=== PATIENT | female | born 1960 | race Caucasian/White ===

== ENCOUNTER 2016-08-22 09:29 | Emergency (ER) | payer OTHER ==
[~2016-08-22] VITALS: Ht 160 cm; Wt 70.3 kg
[~2016-08-22 09:29] MED LIST: CLONAZEPAM1 M2 PO; QUETIAPINE FUMA50 M1 PO
--- NOTE | 2016-08-22 09:39 | ED CARDIAC/CP/PALPITATIONS ---
History of Present Illness General Chief Complaint: Chest Pain Stated Complaint: BIBA, CHEST PAIN Source: patient Exam Limitations: no limitations Reconcile Medications Clonazepam 1 MG TABLET 1 TAB PO QPMP PRN ANXIETY (Reported) Pantoprazole Sodium (Protonix) 40 MG TABLET.DR 1 TAB PO DAILY gerd Quetiapine Fumarate 50 MG TABLET 1 TAB PO QPM SLEEP (Reported) Sucralfate (Carafate) 1 GRAM/10 ML ORAL.SUSP 10 ML PO Q6 PRN upper abdominal pain 1 hour before food and bedtime Triage Nurses Notes Reviewed? yes HPI: Patient is a 55 year old female presents complaining of midsternal pain and difficulty swallowing. Difficulty swallowing x 6 months. Over the past 2 weeks burning sensation from epigastric area into her throat intermittent, multiple episodes each day, and feels this sensation when she feels the difficulty swallowing. Symptoms worse in the morning after waking up. Drinks water and sensation gradually improves. Last episode was this morning when she awoke at 0730, was taking longer than normal to improve which prompted her to call 911. Patient had associated nausea, took Pepto-Bismol with no improvement. Patient reports associated dyspnea when she has the burning sensation. Patient saw her primary care doctor last week, had an EKG and a chest x-ray and is scheduled to follow up with him on August 28. Patient denies family history of cardiac disease. (KENTON BAUER) Vital Signs & Intake/Output Vital Signs & Intake/Output Vital Signs Date Time Temp Pulse Resp B/P Pulse O2 O2 Flow FiO2 Ox Delivery Rate 08/22 1120 98.1 59 16 109/59 96 Room Air 08/22 1000 98 Room Air 08/22 0935 97.5 67 20 110/54 95 Room Air Allergies Coded Allergies: NO KNOWN ALLERGIES (08/22/16) (MIL PORTER,CHEYANNE Delgadillo) Past History Travel History Traveled to [place] past 21 day No Medical History Any Pertinent Medical History? see below for history Psychiatric: anxiety, depression Surgical History Surgical History: non-contributory Psychosocial History What is your primary language Barbadian Tobacco Use: Never used ETOH Use: denies use Illicit Drug Use: denies illicit drug use Family History Hx Contributory? No (KENTON BAUER) Review of Systems Review of Systems Constitutional: Denies: chills, fever. EENTM: Reports: no symptoms. Respiratory: Reports: short of breath (NONE CURRENTLY). Denies: cough. Cardiovascular: Reports: chest pain. Denies: peripheral edema, syncope. GI: Reports: abdominal pain (EPIGASTRIC), nausea. Denies: vomiting. Genitourinary: Reports: no symptoms. Musculoskeletal: Reports: no symptoms. Skin: Reports: no symptoms. Neurological/Psychological: Reports: no symptoms. Hematologic/Endocrine: Reports: no symptoms. Immunologic/Allergic: Reports: no symptoms. (KENTON BAUER) Physical Exam Physical Exam General Appearance: well developed/nourished, alert, awake, anxious Head: atraumatic, normal appearance Eyes: Bilateral: normal appearance, PERRL, EOMI. Ears, Nose, Throat: normal pharynx, normal ENT inspection, hearing grossly normal Neck: normal inspection, supple, full range of motion Respiratory: normal breath sounds, chest non-tender, no respiratory distress, lungs clear Cardiovascular: regular rate/rhythm (NO MURMUR) Gastrointestinal: normal bowel sounds, soft, non-tender Back: normal inspection, normal range of motion Extremities: normal inspection, normal capillary refill, normal range of motion, no edema, NO CALF TENDERNESS Neurologic/Psych: no motor/sensory deficits, awake, alert, oriented x 3, normal mood/affect Skin: intact, normal color, warm/dry Lymphatic: no anterior cervical yonathan Core Measures ACS in differential dx? Yes ASA ordered for poss ACS? No-ACS ruled out Severe Sepsis Present: No Septic Shock Present: No (KENTON BAUER) Progress Differential Diagnosis: AMI, aortic dissection, costochondritis, hyperventilation, musculoskeletal pain, pericarditis, pneumonia, pulmonary embolism, PUD/GERD, unstable angina Initial ED EKG: normal sinus rhythm 69 beats per minute left axis deviation, no acute ST/T-wave changes compared to previous EKG Prior EKG: changed (mild change in axis) Rhythm Strip: normal sinus rhythm (KENTON BAUER) Plan of Care: Orders Procedure Date/time Status Telemetry/Superintendent Logging 08/23 955 Active TROPONIN LEVEL 08/22 09 Complete LIPASE 08/22 09 Complete COMPREHENSIVE METABOLIC PANEL 08/22 09 Complete CBC WITHOUT DIFFERENTIAL 08/23 955 Complete EKG 08/22 0930 Active Laboratory Tests 08/22/16 1005: Anion Gap 8, Estimated GFR > 60, BUN/Creatinine Ratio 15.7, Glucose 92, Calcium 9.5, Total Bilirubin 1.2, AST 28, ALT 37, Alkaline Phosphatase 69, Troponin I < 0.01, Total Protein 6.7, Albumin 3.7, Globulin 3.0, Albumin/Globulin Ratio 1.2, Lipase 85, CBC w Diff NO MAN DIFF REQ, RBC 4.79, MCV 87.6, MCH 29.4, RDW 12.9, MPV 8.9, Gran % 53.9, Lymphocytes % 35.5, Monocytes % 8.1, Eosinophils % 1.9, Basophils % 0.6, Absolute Granulocytes 2.5, Absolute Lymphocytes 1.6, Absolute Monocytes 0.4, Absolute Eosinophils 0.1, Absolute Basophils 0, PUBS MCHC 33.6 Patient had chest x-ray palpation within the past 1 week. Repeat chest x-ray deferred. 08/22/2016 10:07:45 AM: Discussed with Dr. Johnson. Results of labs discussed with patient and her son. Patient appears stable to follow up with her primary doctor next week. Symptoms greater than 24 hours with no ischemic EKG changes and negative troponin. (KENTON BAUER) Departure Departure Time of Disposition: 110 Disposition: HOME OR SELF CARE Condition: Stable Clinical Impression Primary Impression: GERD (gastroesophageal reflux disease) Qualifiers: Esophagitis presence: esophagitis presence not specified Qualified Code: K21.9 - Gastro-esophageal reflux disease without esophagitis Secondary Impressions: Atypical chest pain Referrals: ALLI PORTER,NOLBERTO Way (PCP/Family) BEA PORTER,KENOTN Plunkett Additional Instructions: Follow-up with your primary doctor on August 28 as previously scheduled. Continue taking your MiraLAX as directed, take a stool softener such as Colace as directed to aid with your constipation. Return to the emergency department if worsening of symptoms. Departure Forms: Customer Survey General Discharge Information Prescriptions: Current Visit Scripts Sucralfate (Carafate) 10 ML PO Q6 PRN upper abdominal pain #120 ML 1 hour before food and bedtime Pantoprazole Sodium (Protonix) 1 TAB PO DAILY #30 TAB (KENTON BAUER) PA/SPANISH MEDICAL INTERPRETER Co-Sign Statement Statement: ED Attending supervision documentation- [] I saw and evaluated the patient. I have also reviewed all the pertinent lab results and diagnostic results. I agree with the findings and the plan of care as documented in the PA's/SPANISH MEDICAL INTERPRETER's documentation. [x] I have reviewed the ED Record and agree with the PA's/SPANISH MEDICAL INTERPRETER's documentation. [] Additions or exceptions (if any) to the PAs/SPANISH MEDICAL INTERPRETER's note and plan are summarized below: [] (MIL PORTER,CHEYANNE Delgadillo) Critical Care Note Critical Care Note Critical Care Time: non-applicable (ILSA GARCIA,KENTON)
[2016-08-22 10:16] LABS: ABSOLUTE BASOPHIL COUNT 0 /CUMM (0.0-0.2); ABSOLUTE EOSINOPHIL COUNT 0.1 /CUMM (0.0-0.7); ABSOLUTE GRANULOCYTE CT 2.5 /CUMM (1.4-6.5); ABSOLUTE LYMPH COUNT 1.6 /CUMM (1.2-3.4); ABSOLUTE MONOCYTE COUNT 0.4 /CUMM (0.10-0.60); BASOPHIL % 0.6 % (0.0-2.0); EOSINOPHIL % 1.9 % (0-5); GRANULOCYTE % 53.9 % (42.2-75.2); MEAN CORPUSCULAR HGB 29.4 PG (27.0-31.0); MEAN CORPUSCULAR HGB CONC 33.6 G/DL (33.0-37.0); MEAN CORPUSCULAR VOLUME 87.6 FL (81.0-99.0); MEAN PLATELET VOLUME 8.9 FL (7.4-10.4); PLATELET COUNT 244 /CUMM (130-400); RBC DISTRIBUTION WIDTH 12.9 % (11.5-14.5); RED BLOOD CELL CT 4.79 /CUMM (4.20-5.40); WHITE BLOOD CELL COUNT 4.6 /CUMM (4.8-10.8)
[2016-08-22] MEDS ORDERED: PROTONIX40 M3 PO (11:12)
[2016-08-22] MEDS ORDERED: CARAFATE1 GM/10 M1 PO (11:12)
[2016-08-22 11:20] VITALS: BP 109/59
== END 2016-08-22 11:20 ==
LOC: ERH 09:29
PROVIDERS: Physician Assistant
DX: K21.9 Gastro-esophageal reflux disease without esophagitis (principal); R07.89 Other chest pain
CPT/HCPCS: 93005; 93010

== ENCOUNTER 2016-08-25 13:21 | Emergency (ER) | payer OTHER ==
[~2016-08-25] VITALS: Ht 160 cm; Wt 69.4 kg
[~2016-08-25 13:21] MED LIST changes: +CARAFATE1 GM/10 M1 PO; +PROTONIX40 M3 PO
--- NOTE | 2016-08-25 13:48 | ED GI/GU/ABDOMINAL COMPLAINT ---
History of Present Illness General Chief Complaint: Chest Pain Stated Complaint: CHEST PAIN Source: patient Exam Limitations: no limitations Vital Signs & Intake/Output Vital Signs & Intake/Output Vital Signs Date Time Temp Pulse Resp B/P Pulse O2 O2 Flow FiO2 Ox Delivery Rate 08/25 1736 97.2 75 18 115/74 97 Room Air Room Air 08/25 1439 97.8 74 20 108/70 96 Nasal 2.0L Cannula 08/25 1336 98 Room Air Room Air 08/25 1335 98.2 88 20 123/68 98 Room Air Room Air Allergies Coded Allergies: NO KNOWN ALLERGIES (08/22/16) Triage Note: PT WALKED INTO TRIAGE AND LAID DOWN ON FLOOR PER TRIAGE NURSE MARJORIE. PT TO TOUSSAINT A STRETCHER VIA WHEELCHAIR, ABLE TO GET UP AND AMUBLATE TO TOUSSAINT A STRETCHER. PT AND STATING "I WAS JUST DISCHARGED FROM [facility], SUPPOSED TO FOLLOW UP WITH GI, I WANT TO FIND OUT AND SEE GI RIGHT NOW". VITALS STABLE, AFEBRILE. DENIES N/V/D. Triage Nurses Notes Reviewed? yes ? N Is pt currently ? No HPI: This patient is a 55-year-old female with a past medical history including anxiety, and depression who presented to the emergency department today brought in by her for evaluation of multiple complaints. This patient was just discharged from [facility]. Last night the patient began having chest pressure which she was unable to describe or quantify for me. The patient reported that his belly Was Sitting on Her Chest. She Reported the Pain Radiated to Her Back. She Had a Stress Test, EKG, Chest X-Ray, and Blood Work Done at [facility], All of Which Was Unremarkable. They Told Her to Follow up with a Director Index. The Patient Reported That She Was Coming Back from the Hospital She Started to Feel a Pressure in Her Abdomen Which Feels like It Is, "Rising up to My Chest." The Patient Denied Any Pain or Nausea. She Denied Any Vomiting. The Patient Is Denying Any Current Back Pain, Urinary Burning, Urgency, Frequency, Blood in the Urine, Urinary Retention, Diarrhea, or Constipation. The Patient Reported That She Is Feeling Confused and, "Out Of It. She Reported That It Feels like It Is Difficult to Breathe. (GLORY BEAL,LANCE) Reconcile Medications Clonazepam 1 MG TABLET 1 TAB PO QPMP PRN ANXIETY (Reported) Famotidine (Pepcid) 20 MG TABLET 1 TAB PO BID PRN REFLUX Metoclopramide HCl (Reglan) 10 MG TABLET 1 TAB PO 4 TIMES/DAY PRN NAUSEA/ VOMITING 30 minutes before meals and bedtime Pantoprazole Sodium (Protonix) 40 MG TABLET.DR 1 TAB PO DAILY gerd Quetiapine Fumarate 50 MG TABLET 1 TAB PO QPM SLEEP (Reported) Sucralfate (Carafate) 1 GRAM/10 ML ORAL.SUSP 10 ML PO Q6 PRN upper abdominal pain 1 hour before food and bedtime (JASMYN ABDI MD) Past History Travel History Traveled to [place] past 21 day No Medical History Any Pertinent Medical History? see below for history Neurological: NONE EENT: NONE Cardiovascular: NONE Respiratory: NONE Gastrointestinal: ? GERD Hepatic: NONE Renal: NONE Musculoskeletal: NONE Psychiatric: anxiety, depression Endocrine: NONE Blood Disorders: NONE Cancer(s): NONE CHILD DEVELOPMENT PROFESSOR/Reproductive: NONE Surgical History Surgical History: non-contributory Psychosocial History What is your primary language Estonian Tobacco Use: Never used ETOH Use: occasional use Illicit Drug Use: denies illicit drug use Family History Hx Contributory? No (LANCE HOLDER PA-C) Review of Systems Review of Systems Constitutional: Reports: see HPI. EENTM: Reports: no symptoms. Respiratory: Reports: see HPI. Cardiovascular: Reports: see HPI. GI: Reports: see HPI. Genitourinary: Reports: no symptoms. Musculoskeletal: Reports: no symptoms. Skin: Reports: no symptoms. Neurological/Psychological: Reports: no symptoms. All Other Systems: Reviewed and Negative (LANCE HOLDER PA-C) Physical Exam Physical Exam Gastrointestinal: normal bowel sounds, soft, non-tender, no organomegaly, NO REBOUND OR GUARDING. nO PERITONEAL SIGNS. nO MASSES APPRECIATED. Comments: Well-developed well-nourished person in moderate distress HEENT: Normal EENT exam, head normocephalic, moist mucous membranes Pupils equally round and reactive to light. Neck: Supple, no lymphadenopathy Back: Normal inspection with no CVA tenderness Cardiovascular: Regular rate and rhythm with no murmurs, rubs, or gallops. No JVD or carotid bruits Respiratory: Chest nontender. No respiratory distress. Breath sounds clear to auscultation bilaterally with no wheezes, rales, rhonchi Extremity: Normal and equal pulses Neuro: Alert and oriented 3, cranial nerves II through XII grossly intact. Skin: No appreciable rash on exposed skin, skin is warm and dry. Psych: Mood and affect is normal Core Measures ACS in differential dx? No Severe Sepsis Present: No Septic Shock Present: No (GLORY BEAL,LANCE) Progress Differential Diagnosis: AAA, AMI, appendicitis, biliary colic, bowel obstruction , colon cancer, cholecystitis, diverticulitis, ectopic , endometritis, esophageal varices, gastritis, hepatitis, hernia, ischemic bowel, inflamm bowel dis, kidney stone, ovarian cyst, ovarian torsion, pancreatitis, PID/cervicitis, PUD/GERD, perforated viscous, SBO, threatened AB, UTI/pyelo Plan of Care: Orders Procedure Date/time Status D-DIMER 08/25 135 Complete TROPONIN LEVEL 08/25 134 Complete LIPASE 08/25 134 Complete DIRECT BILIRUBIN 08/25 134 Complete COMPREHENSIVE METABOLIC PANEL 08/25 134 Complete CBC WITHOUT DIFFERENTIAL 08/25 134 Complete AMYLASE 08/25 134 Complete EKG 08/25 134 Active Laboratory Tests 08/25/16 1350: Anion Gap 10, Estimated GFR > 60, BUN/Creatinine Ratio 15.0, Glucose 92, Calcium 9.5, Total Bilirubin 1.5 H, Direct Bilirubin 0.1, AST 31, ALT 40, Alkaline Phosphatase 67, Troponin I < 0.01, Total Protein 7.1, Albumin 3.9, Globulin 3.2, Albumin/Globulin Ratio 1.2, Amylase 97, Lipase 111, D-Dimer < 200, CBC w Diff NO MAN DIFF REQ, RBC 4.91, MCV 87.8, MCH 29.1, RDW 13.0, MPV 9.3, Gran % 56.1, Lymphocytes % 34.9, Monocytes % 6.6, Eosinophils % 2.1, Basophils % 0.3, Absolute Granulocytes 4.0, Absolute Lymphocytes 2.5, Absolute Monocytes 0.5, Absolute Eosinophils 0.1, Absolute Basophils 0, PUBS MCHC 33.2 08/25/16 1348: Urine Color Cancelled, Urine Clarity Cancelled, Urine pH Cancelled, Ur Specific [place] Cancelled, Urine Protein Cancelled, Urine Ketones Cancelled, Urine Nitrite Cancelled, Urine Bilirubin Cancelled, Urine Urobilinogen Cancelled, Ur Leukocyte Esterase Cancelled, Ur Microscopic Cancelled, Urine Hemoglobin Cancelled, Urine Glucose Cancelled Microbiology 08/25 1348 URINE ROUT: Urine Culture - CAN Cancelled: NOT REC'D IN LAB - PATIENT DEPARTED ER Diagnostic Imaging: Viewed by Me: CT Scan. Discussed w/RAD: CT Scan. Radiology Impression: PATIENT: KERLINE TRUJILLO PRESENT AGE: 55 PATIENT ACCOUNT NO: [id number] : 60 LOCATION: [facility] ORDERING PHYSICIAN: LANCE HOLDER PA-C SERVICE DATE: 08/25/16 EXAM TYPE: CAT - CT ABD & PELVIS W IV CONTRAST EXAMINATION: CT ABDOMEN AND PELVIS WITH CONTRAST CLINICAL INFORMATION: Abdominal pain COMPARISON: None TECHNIQUE: Multidetector volumetric imaging was performed of the abdomen and pelvis before and after the IV administration of 94 mL of Optiray 320 intravenous contrast. Sagittal and coronal reformatted images were obtained on the technologist's workstation. DLP: 369 mGy-cm FINDINGS: LUNG BASES: There are subpleural linear densities in the posterior lung bases bilaterally in addition to the elongated densities in the left lower lobe, right middle lobe and visualized part of the lingula. LIVER, GALLBLADDER, AND BILIARY TREE: The liver is normal in size, shape, and attenuation. No focal hepatic lesion or biliary ductal dilatation is present. The gallbladder is unremarkable with no evidence of radiopaque gallstones, gallbladder wall thickening, or obvious pericholecystic inflammatory changes. PANCREAS: Unremarkable. SPLEEN: Unremarkable. ADRENAL GLANDS: Unremarkable. KIDNEYS AND URETERS: The kidneys are normal in size, shape, and attenuation. No hydronephrosis, hydroureter, or calculi seen. No perinephric stranding. There is a 7 mm right renal cortical hypodensity in the interpolar region which could represent a renal cortical cyst. BLADDER: Slightly over distended and unremarkable. GASTROINTESTINAL TRACT: The stomach, duodenum small and large bowel are unremarkable. The appendix is not seen. There is no inflammatory changes in the expected position of the appendix to suggest acute appendicitis. ABDOMINAL WALL: No significant hernia is appreciated. LYMPH NODES: Normal. VASCULAR: Unremarkable. PELVIC VISCERA: The uterus and adnexa are unremarkable. OSSEOUS STRUCTURES: Unremarkable. IMPRESSION: 1. No acute intra-abdominal finding. Although the appendix is not clearly seen on this exam there is no definite CT evidence of acute appendicitis. 2. Pulmonary opacities seen at the lung bases and visualized parts of the right middle lobe and lingula. Findings could represent atelectatic changes. Clinical correlation for pneumonia is suggested. DICTATED BY: JASWANT LORENZ MD DATE/TIME DICTATED:08/25/161539 DESIGN ENGINEER:STEFANIE DATE/TIME TRANSCRIBED:08/25/161539 CONFIDENTIAL, DO NOT COPY WITHOUT APPROPRIATE AUTHORIZATION. <Electronically signed in Other Vendor System> SIGNED BY: JASWANT LORENZ MD 08/25/16 8039 Initial ED EKG: normal axis, normal intervals, normal sinus rhythm, no ST T wave changes, 60 BPM Comments: 08/25/2016 4:23:11 PM: I was at the patient's bedside for re-evaluation. Resting comfortably on the sretcher, in no acute distress, sleeping. Explained to her the lab results. No increase in WBC count. Troponin not elevated. No increase in amylase, lipase, for bilirubin. CT scan unremarkable. Patient has a cardiac stress test, 3 troponin levels, an EKG, and overnight monitoring at [facility]. Patient reported, "I am not leaving. Stop talking to me. You need to do something because I know something is wrong with me. Bring me some place that will help me." Discussed this patient with Dr. Abdi. He was at the patient's bedside for face to face evaluation. She will get 1 liter of fluids, reglan, and pepcid. (LANCE HOLDER PA-C) Departure Departure Disposition: HOME OR SELF CARE Condition: Stable Clinical Impression Primary Impression: Abdominal pressure Referrals: ALLI PORTER,NOLBERTO Way (PCP/Family) LYDIA PORTER,CK Bates Additional Instructions: Continue to take all previously prescribed medications as directed. Follow-up with the brown stock washer whose information has been provided to you in this packet. Return for any worsening symptoms or concerns. Departure Forms: Customer Survey General Discharge Information Prescriptions: Current Visit Scripts Metoclopramide HCl (Reglan) 1 TAB PO 4 TIMES/DAY PRN NAUSEA/VOMITING #28 TAB 30 minutes before meals and bedtime Famotidine (Pepcid) 1 TAB PO BID PRN REFLUX #14 TAB (LANCE HOLDER PA-C) PA/TEST DEPARTMENT HELPER Co-Sign Statement Statement: ED Attending supervision documentation- x I saw and evaluated the patient. I have also reviewed all the pertinent lab results and diagnostic results. I agree with the findings and the plan of care as documented in the PA's/TEST DEPARTMENT HELPER's documentation. [] I have reviewed the ED Record and agree with the PA's/TEST DEPARTMENT HELPER's documentation. [] Additions or exceptions (if any) to the PAs/TEST DEPARTMENT HELPER's note and plan are summarized below: [] (TRINIDAD PORTER,JASMYN)
[2016-08-25 14:08] LABS: ABSOLUTE BASOPHIL COUNT 0 /CUMM (0.0-0.2); ABSOLUTE EOSINOPHIL COUNT 0.1 /CUMM (0.0-0.7); ABSOLUTE LYMPH COUNT 2.5 /CUMM (1.2-3.4); ABSOLUTE MONOCYTE COUNT 0.5 /CUMM (0.10-0.60); BASOPHIL % 0.3 % (0.0-2.0); EOSINOPHIL % 2.1 % (0-5); GRANULOCYTE % 56.1 % (42.2-75.2); HEMATOCRIT 43.1 % (37-47); MEAN CORPUSCULAR HGB 29.1 PG (27.0-31.0); MEAN CORPUSCULAR HGB CONC 33.2 G/DL (33.0-37.0); MEAN CORPUSCULAR VOLUME 87.8 FL (81.0-99.0); MEAN PLATELET VOLUME 9.3 FL (7.4-10.4); PLATELET COUNT 230 /CUMM (130-400); RED BLOOD CELL CT 4.91 /CUMM (4.20-5.40)
[2016-08-25 14:16] LABS: WHITE BLOOD CELL COUNT 7.1 /CUMM (4.8-10.8)
--- NOTE | 2016-08-25 15:52 | CT SCAN REPORT ---
EXAMINATION: CT ABDOMEN AND PELVIS WITH CONTRAST CLINICAL INFORMATION: Abdominal pain COMPARISON: None TECHNIQUE: Multidetector volumetric imaging was performed of the abdomen and pelvis before and after the IV administration of 94 mL of Optiray 320 intravenous contrast. Sagittal and coronal reformatted images were obtained on the technologist's workstation. DLP: 369 mGy-cm FINDINGS: LUNG BASES: There are subpleural linear densities in the posterior lung bases bilaterally in addition to the elongated densities in the left lower lobe, right middle lobe and visualized part of the lingula. LIVER, GALLBLADDER, AND BILIARY TREE: The liver is normal in size, shape, and attenuation. No focal hepatic lesion or biliary ductal dilatation is present. The gallbladder is unremarkable with no evidence of radiopaque gallstones, gallbladder wall thickening, or obvious pericholecystic inflammatory changes. PANCREAS: Unremarkable. SPLEEN: Unremarkable. ADRENAL GLANDS: Unremarkable. KIDNEYS AND URETERS: The kidneys are normal in size, shape, and attenuation. No hydronephrosis, hydroureter, or calculi seen. No perinephric stranding. There is a 7 mm right renal cortical hypodensity in the interpolar region which could represent a renal cortical cyst. BLADDER: Slightly over distended and unremarkable. GASTROINTESTINAL TRACT: The stomach, duodenum small and large bowel are unremarkable. The appendix is not seen. There is no inflammatory changes in the expected position of the appendix to suggest acute appendicitis. ABDOMINAL WALL: No significant hernia is appreciated. LYMPH NODES: Normal. VASCULAR: Unremarkable. PELVIC VISCERA: The uterus and adnexa are unremarkable. OSSEOUS STRUCTURES: Unremarkable. IMPRESSION: 1. No acute intra-abdominal finding. Although the appendix is not clearly seen on this exam there is no definite CT evidence of acute appendicitis. 2. Pulmonary opacities seen at the lung bases and visualized parts of the right middle lobe and lingula. Findings could represent atelectatic changes. Clinical correlation for pneumonia is suggested.
[2016-08-25] MEDS ORDERED: PEPCID20 M1 PO (17:21)
[2016-08-25] MEDS ORDERED: REGLAN10 M1 PO (17:21)
[2016-08-25 17:36] VITALS: BP 115/74
== END 2016-08-25 17:32 ==
LOC: ERH 13:21
PROVIDERS: Physician Assistant
DX: R07.89 Other chest pain (principal)
CPT/HCPCS: 74177; 87086; 93005; 93010; 96361; 96374; 96375; J2765